=== PATIENT | male | born 1985 | race Caucasian/White ===

== ENCOUNTER 2016-06-02 16:33 | Emergency (ER) | payer SELFPAY ==
[2016-06-02 16:55] VITALS: BP 140/88; PULSE 63; TEMP 98.6; BMI 42.5
--- NOTE | 2016-06-02 18:43 | PDOC ---
History of Present Illness - General Chief Complaint: Pain Stated Complaint: LT ARM PAIN/NECK /CHEST PAIN Time Seen by Provider: 06/02/16 17:58 History Source: Patient Exam Limitations: No Limitations - History of Present Illness Initial Comments: 06/02/16 18:39 30 yr male with history of feeling short of breath for 2 weeks on and off then today had left sided "stabbing" pain that radiates to his left shoulder. no nausea. Pt states pain reproduced with movement of the shoulder at time, denies injury. Pt has history of recent 30 lb weight gain in 4 months as well as quit smoking 2 months ago. Pt denies fever or leg swelling or pain. No SOB now. Past History - Past Medical History Allergies/Adverse Reactions: Allergies Allergy/AdvReac Type Severity Reaction Status Date / Time STEROIDS Allergy Swelling Uncoded 06/02/16 16:50 Other medical history: DENIES. - Surgical History Abdominal Surgery: Yes - Psycho/Social/Smoking Cessation Hx Suicidal Ideation: No Smoking History: Former smoker Have you smoked in the past 12 months: Yes Information on smoking cessation initiated: No Review of Systems - Review of Systems Able to Perform ROS?: Yes Is the patient limited [place] proficient: No Constitutional: No: Symptoms Reported HEENTM: No: Symptoms Reported Respiratory: Yes: Shortness of Breath Cardiac (ROS): Yes: Chest Pain Musculoskeletal: Yes: Joint Pain (left shoulder ) *Physical Exam - Vital Signs Last Vital Signs Temp Pulse Resp BP Pulse Ox 98.6 F 63 19 140/88 100 06/02/16 16:51 06/02/16 16:51 06/02/16 16:51 06/02/16 16:51 06/02/16 16:51 - Physical Exam General Appearance: Yes: Nourished, Appropriately Dressed HEENT: positive: EOMI, EARNESTINE, Normal ENT Inspection, TMs Normal, Pharynx Normal Neck: positive: Supple. negative: Tender Respiratory/Chest: positive: Lungs Clear, Normal Breath Sounds. negative: Chest Tender Cardiovascular: positive: Regular Rhythm Gastrointestinal/Abdominal: positive: Normal Bowel Sounds, Soft. negative: Tender Musculoskeletal: positive: Normal Inspection Extremity: positive: Normal Capillary Refill, Normal Inspection, Normal Range of Motion. negative: Tender Integumentary: positive: Normal Color, Dry, Warm Neurologic: positive: Fully Oriented, Alert, Normal Mood/Affect, Normal Response , Motor Strength 5/5 Heart Score/ECG Review - ECG Intrepretation Rhythm: Regular Rhythm - ECG Impressions Normal ECG: Yes Comment:: 06/02/16 19:[address]Mok YEUNG no ectopy no STEMI ED Treatment Course - LABORATORY CBC & Chemistry Diagram: 06/02/16 18:35 06/02/16 18:35 - RADIOLOGY Radiology Studies Ordered: Category Date Time Status CHEST PA & LAT [RAD] Stat Radiology 06/02/16 18:24 Ordered Medical Decision Making - Medical Decision Making 06/02/16 19:51 cc: left shoulder pain to left chest stabbing sensation started today with moving arm, no pain now no SOB had SOB last week has stopped smoking in [place] states he has gained 30 lbs since january afebrile no drug use alcohol daily 2 shots vitals are stable no travel no leg pain [place] Criteria for PE: Low risk group: 1.3% chance of PE in an ED population. PERC Rule for PE: 0 criteria No need for further workup, as <2% chance of PE. *DC/Admit/Observation/Transfer Diagnosis at time of Disposition: Nonspecific chest pain - Discharge Dispostion Disposition: HOME Condition at time of disposition: Good - Referrals Referrals: [facility] [Provider Group] - Patient Instructions Additional Instructions: call Sunday to make follow up appointment with [facility] drink pleanty of water take motrin or tylenol for pain as needed avoid any lifting or bending Return to ER for any worsening symptoms
[2016-06-02 18:46] LABS: BASOPHIL 0.7 % (0-2.0); EOSINOPHIL 5.2 % (0-4.5); MCH 29.1 pg (25.7-33.7); MCHC 33.8 g/dl (32.0-35.9); MEAN CELL VOLUME 86.3 fl (80-96); MEAN PLT VOLUME 9.4 fl (7.5-11.1); NEUTROPHILS 54.7 % (42.8-82.8); PLATELET COUNT 244 K/MM3 (134-434); RDW 14.4 % (11.9-15.9); WHITE BLOOD COUNT 10.3 K/mm3 (4.0-10.0)
[2016-06-02] MEDS ORDERED: KETOROLAC TROMETHAMINE 60 MG/2 ML VIAL IM ONE (19:09)
[2016-06-02 19:11] LABS: ALBUMIN 3.8 g/dl (3.4-5.0); ANION GAP 8 (8-16); CALCIUM 8.5 mg/dL (8.5-10.1); CO2 28 mmol/L (21-32); COCKROFT - GAULT 301.94; CREATININE 0.7 mg/dL (0.7-1.3); GLUCOSE,RANDOM 84 mg/dL (74-106); SGOT/AST 15 U/L (15-37); SGPT/ALT 20 U/L (12-78)
[2016-06-02 19:14] LABS: ALK PHOS 53 U/L (45-117); BILIRUBIN,TOTAL 0.4 mg/dL (0.2-1.0); TOT PROT 7.3 g/dl (6.4-8.2); TROPONIN I < 0.02 ng/ml (0.00-0.05)
[2016-06-02] MEDS ORDERED: IBUPROFEN 400 MG TABLET (FP) PO ONE (19:42)
[2016-06-02] MEDS ORDERED: IBUPROFEN 600 MG TABLET (FP) PO ONE (19:43)
--- NOTE | 2016-06-04 17:17 | EKG ---
Test Reason : Blood Pressure : / mmHG Vent. Rate : 060 BPM Atrial Rate : 060 BPM P-R Int : 150 ms QRS Dur : 084 ms QT Int : 416 ms P-R-T Axes : 050 -03 026 degrees QTc Int : 416 ms POOR DATA QUALITY, INTERPRETATION MAY BE ADVERSELY AFFECTED NORMAL SINUS RHYTHM MINIMAL VOLTAGE CRITERIA FOR LVH, MAY BE NORMAL VARIANT BORDERLINE ECG NO PREVIOUS ECGS AVAILABLE Confirmed by GARRETT URRUTIA, CONSTANCE ([id number]) on 06/04/2016 5:16:50 PM Referred By: Confirmed By:CONSTANCE TUCKER MD
== END 2016-06-02 20:29 | disposition home or self-care (01) ==
LOC: JERFT 16:33
DX: R07.89 Other chest pain (principal)
CPT/HCPCS: 36415; 71020-TC; 80053; 82550; 84484; 85025; 93005; 93010; 99281-25

== ENCOUNTER 2020-02-08 10:27 | Emergency (ER) | payer SELFPAY ==
[2020-02-08 10:36] VITALS: BP 134/77; PULSE 75; TEMP 97; BMI 46.5
[2020-02-08] MEDS ORDERED: KETOROLAC TROMETHAMINE 60 MG/2 ML VIAL IM ONE (11:18)
[2020-02-08] MEDS ORDERED: CYCLOBENZAPRINE HCL 10 MG TABLET (FP) PO ONE (11:18)
[2020-02-08] MEDS ORDERED: KETOROLAC TROMETHAMINE 60 MG/2 ML VIAL ONE (11:19)
[2020-02-08] MEDS ORDERED: CYCLOBENZAPRINE HCL 10 MG TABLET (FP) ONE (11:19)
== END 2020-02-08 11:49 | disposition home or self-care (01) ==
LOC: JERFT 10:27
PROC: 3E0233Z Introduction of Anti-inflammatory into Muscle, Percutaneous Approach (ICD-10-PCS; principal; 2020-02-08)
DX: M54.5 Low back pain (principal)
CPT/HCPCS: 99284-25